=== PATIENT | male | born 1965 | race Caucasian/White ===

== ENCOUNTER → 2020-04-18 15:29 | Outpatient (BNVA) | payer OTHER, SELFPAY | PROVIDERS: Visit Provider Urology | DX: Z76.89 Persons encountering health services in other specified circumstances (principal) ==

== ENCOUNTER 2020-07-10 10:51 | Outpatient (REF) | payer OTHER, SELFPAY ==
--- NOTE | ~2020-07-10 | XR_ITS ---
EXAMINATION: XR ELBOW, LEFT CLINICAL INFORMATION: M77.8 - Other enthesopathies, not elsewhere classified COMPARISON: None TECHNIQUE: AP, lateral, and oblique views of the left elbow. FINDINGS: There is no fracture, dislocation, or elbow capsular effusion. Bony mineralization is normal. There is no joint narrowing or erosive change. There is some borderline spurring coronoid process ulna as well as the medial and lateral epicondyles. XR/XR elbow LT min 3V IMPRESSION: 1. Borderline spurring coronoid process as well as medial and lateral epicondyles. 2. No joint narrowing or erosive change or effusion.
== END 2020-07-10 10:52 | disposition home or self-care (01) ==
LOC: HO.HMGCX 10:51
PROVIDERS: PCP Internal Medicine; Visit Provider Nurse Practitioner Family
DX: M77.8 Other enthesopathies, not elsewhere classified (principal)
CPT/HCPCS: 73080

== ENCOUNTER → 2020-07-31 15:54 | Outpatient (BNVA) | payer OTHER, SELFPAY | PROVIDERS: Visit Provider Urology ==

== ENCOUNTER → 2020-08-15 10:25 | Outpatient (BNVA) | payer OTHER, SELFPAY | PROVIDERS: PCP Internal Medicine; Visit Provider Physician Assistant | DX: M77.02 Medial epicondylitis, left elbow (principal) | CPT/HCPCS: 20551; J1020 ==

== ENCOUNTER → 2020-09-07 10:58 | Outpatient (BNVA) | payer OTHER, SELFPAY | PROVIDERS: PCP Internal Medicine; Visit Provider Physician Assistant ==

== ENCOUNTER 2020-10-09 14:00 | Outpatient (RCR) | payer OTHER, SELFPAY ==
--- NOTE | 2020-09-20 13:06 | MHC.OT.OEV ---
[address] [phone] F: [phone] Occupational Therapy Evaluation Diagnosis: Left Medial Epicondylitis Date of Onset: 06/06/20 Attending Provider: Annabel Vargas PA-C Prescribed Treatment: Eval and Treat History of Current Condition: Pt w/ history of left medial elbow pain over the past four months, was seen at [facility] and referred to OT where he was seen for eight visits 07/23/20-08/17/20. He is s/p cortisone injection 08/15/20 and was discharged from OT services doing well w/ low pain and good functional capacity. He returns today with continued pain in left medial elbow. 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 Has not been to the gym in over a year. 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 Spending more time resting and reading, not doing any physical activity. States he has a CFB, wheres 'at times' Sleep: Occasional pain in the morning with first movement Driving: Driving w/ right dominant hand primarily Pain Assessment Pain Score: 5-7 Pain Scale Used: Numeric (0 - 10) Pain Location and Description: Left medial elbow, sharp-ache Aggravating Factors: Straightening elbow, gripping, reaching and grabbing objects Alleviating Factors: Uses a hot cream on his elbow Rest Nerve assessment Ulnar Nerve: B/L Impaired Median Nerve: Radial Nerve: Comments: 4/5 B/L small finger add Sensory Assessment Temperature: Light Touch: Proprioception: Vibration: Comments: Pt reports volar-medial forearm tingling at times (+) Tinels at ulnar nerve at elbow Edema Assessment Upper Extremity: Left Impaired Lower Extremity: Comments: Left medial elbow, cubital fossa, volar forearm Dexterity Assessment Dexterity: WFL Comments: Special Tests Comments: (+) pain w/ wrist flex resistance AROM(PROM) Strength Cervical Cervical Flexion: Cervical Extension: Cervical Lateral Flexion: Cervical Rotation: Comments: WFL Shoulder Flexion: Extension: Abduction: Internal Rotation: External Rotation: Comments: WFL Flexion: Extension: Abduction: Internal Rotation: External Rotation: Comments: Elbow Flexion: Extension: Pronation: Supination: Comments: WFL Flexion: Extension: Pronation: Supination: Comments: Wrist Flexion: Extension: Ulnar Deviation: Radial Deviation: Comments: WFL Flexion: Extension: Ulnar Deviation: Radial Deviation: Comments: Thumb Thumb CMC Flexion: Thumb MCP Flexion: Thumb IP Flexion: Radial Abduction: Palmar Abduction: Debary (Kapandji 0-10): Comments: WFL Digits Index MCP: PIP: DIP: Long MCP: PIP: DIP: Ring MCP: PIP: DIP: Small MCP: PIP: DIP: Comments: WFL Gross Grasp: R 88 L 80 (w/ elbow extended) Lateral Pinch: Two-Point Pinch: Three-Jaw Jonas: Comments: Left gross grasp 90lb extended w/ less pain Patient Education 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 Patient demonstrates Patient verbalizes Family/SO demonstrates Family/SO verbalizes Barriers to Learning: None Readiness for Learning: Accepting Who was educated? Patient Family/spouse Comments: Plan of Care Assessment: 55 yo right hand dominant male returns w/ persistent pain in left medial epicondyle. He has had full course of OT w/ ionto and progression of strengthening w/ additional patient education, but today he is reporting higher pain and functional loss than on discharge from services about one month ago. He is scheduled to return to work tomorrow and is hopeful to return on light duty. On assessment, he cont's to have sharp pain to palpate medial epicondyle and increased pain w/ resisted wrist flexion. Gross grasp is comparable to dominant side. He will benefit from cont'd OT services to address pain, inflammation and functional deficits. If no change in about a month, we will refer back to ortho for further work-up and options. 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: Pain free at rest Pt to return to work at light duty Ind w/ self edema management techniques (ice, massage) QuickDASH score <35 pts Frequency and Duration: The patient will be seen 2x/wk for 4 weeks Treatment Plan: Therapeutic Exercise Therapeutic Activity Home Exercise Program Splinting Patient Education Desensitization/Sensory Re-ed Edema Control ADL Training Ultrasound MHP Cold Packs Joint Mobilization Soft Tissue Mobilization Kinesiotaping Possible nighttime resting wrist orthosis Electronically Signed By: Yuly Davey OTR/L Reviewed/agree with student documentation: N/A Therapist: Please sign and return to therapist, Thank you for your referral.
--- NOTE | 2020-10-09 14:48 | MHC.OT.DC ---
[address] [phone] F: [phone] Occupational Therapy Discharge Note Provider: Annabel Vargas PA-C Diagnosis: Left Medial Epicondylitis Date of Evaluation: 09/20/20 Date of Discharge: 10/09/20 Treatments to Date: 6 Discharge Status: Discharge Summary: Mike been to OT for three weeks for management of left medial epicondylitis. Most goals met, still w/ low persistent pain, primarily with work tasks (gripping, lifting, carrying). Good follow through w/ CFB wear and HEP, states he is using pillow roll to sleep w/ some relief. He has good understanding of home program and activity modification, somewhat limited in follow through due to work demands. He will benefit from follow up in ortho office to discuss persistent pain and further options. Electronically Signed By: Yuly Davey OTR/L Reviewed/agree with student documentation: N/A Therapist: Please Sign and return to therapist, thank you for your referral.
== END 2020-10-22 11:44 | disposition other institution (70) ==
LOC: HO.OT 14:00
PROVIDERS: PCP Internal Medicine; Visit Provider Physician Assistant
DX: M77.02 Medial epicondylitis, left elbow (principal)
CPT/HCPCS: 97035; 97110; 97165

== ENCOUNTER → 2021-09-17 10:22 | Outpatient (RCR) | payer OTHER, SELFPAY ==
--- NOTE | 2020-08-17 15:45 | MHC.OT.DC ---
[address] [phone] F: [phone] Occupational Therapy Discharge Note Provider: Lissette Lees Diagnosis: Left elbow tendinitis Date of Surgery: Date of Evaluation: 07/23/20 Date of Discharge: Treatments to Date: 8 Cancellations to Date: No Shows to Date: Discharge Status: Improved Function Independent with HEP Discharge Summary: Elbow injected two days ago. Pt has good pain management with generally low pain, limited activitiy. He is indep with his HEP I anticipate con't improvement over the next few weeks. Skilled OT not needed at this time Electronically Signed By: Sheryl Paiz OT CHT CLT Reviewed/agree with student documentation: N/A Therapist: Please Sign and return to therapist, thank you for your referral.
== END | disposition home or self-care (01) ==
LOC: HO.OT 07-23 09:52
PROVIDERS: Visit Provider Nurse Practitioner Family
DX: M77.8 Other enthesopathies, not elsewhere classified (principal)
CPT/HCPCS: 97033; 97035; 97110; 97165; J1100; J2250; J3010